=== PATIENT | female | born 1950 | race Caucasian/White ===

== ENCOUNTER 2024-04-14 16:28 | Emergency (ER) | payer MEDICARE, OTHER, SELFPAY ==
[2024-04-14 16:29] VITALS: BP 125/71; PULSE 66; RESP 14; TEMP 36.8; O2SAT 98
--- NOTE | 2024-04-14 16:32 | RAD_ITS ---
INDICATION: FALL EXAMINATION/TECHNIQUE: X-RAY - RIGHT XR Shoulder Min 2 Views 2 VIEWS COMPARISON: FINDINGS: SOFT TISSUES: No soft tissue swelling or gas. No radiopaque foreign body. BONES/JOINTS: Anterior dislocation of the right shoulder.. No sclerotic or destructive changes observed. RAD/Shoulder min 2 Views IMPRESSION: Anterior right shoulder dislocation. Electronically Signed: Andres Barr DO at 17:40 EDT ,
--- NOTE | 2024-04-14 16:33 | RAD_ITS ---
INDICATION: FALL EXAMINATION/TECHNIQUE: X-RAY - RIGHT XR Wrist Min 3 Views 3 VIEWS COMPARISON: FINDINGS: SOFT TISSUES: No soft tissue swelling or gas. No radiopaque foreign body. BONES/JOINTS: No acute fracture or subluxation.. Degenerative changes at the first carpal metacarpal articulation.. No sclerotic or destructive changes observed. RAD/Wrist min 3 Views IMPRESSION: No acute bony injury. Electronically Signed: Andres Barr DO at 17:15 EDT ,
--- NOTE | 2024-04-14 16:36 | ED.RN ---
PT DEMANDING TO BE SEEN IMMEDIATELY. PT NOT WANTING TO WAIT FOR A ROOM. PT WANTS TO GO BACK BEFORE OTHERS REGARDLESS OF WHY THEY ARE HERE.
--- NOTE | 2024-04-14 16:45 | RAD_ITS ---
INDICATION: FALL EXAMINATION/TECHNIQUE: X-RAY - RIGHT XR Elbow 2 Views COMPARISON: FINDINGS: SOFT TISSUES: No soft tissue swelling or gas. No radiopaque foreign body. BONES/JOINTS: There is no displacement of the anterior or posterior fat pads. No acute fracture or subluxation. Normal alignment. Preservation of the joint space. No sclerotic or destructive changes observed. RAD/Elbow 2 Views IMPRESSION: Negative. Electronically Signed: Andres Barr DO at 17:41 EDT ,
--- NOTE | 2024-04-14 17:06 | EDS_ITS ---
HPI History of Present Illness Chief Complaint: Upper Extremity Injury Detail of Chief Complaint: Patient fell and probably has pain in the shoulder but also complains palin Informant: patient Occured/Mechanism Mechanism/Context: Yes same level fall Onset/Context/Timing Onset: Today Context: Sudden Onset Timing: Continuous Quality of Pain: Dull and Aching Location: Right shoulder, elbow wrist. Current Severity: Severe (Shoulder) Maximum Severity: Severe Worsened by: Movement of the right upper extremity Relieved by: Nothing Associated Symptoms Associated Symptoms: Positive for Loss of Funtion Narrative Narrative: Patient states she was thinking of something. She thought she was sitting on a chair and landed on her right side. She injured her right shoulder, elbow and wrist. The most severe pain is the shoulder. Per nurse protocol x-ray of the shoulder wrist and elbow were obtained. Patient denies head trauma. Patient not on anticoagulant. Patient denies any problems with anesthesia. Patient denies allergy to egg products or soy products. Patient denies chest pain. Patient denies shortness of breath. Patient denies abdominal pain, nausea or vomiting. Prior similar symptoms: No Recent Illness/Hospitalization: No PFSH PFSH Home Medications ?Medication ?Instructions ?Recorded ?Last Taken ?Type azithromycin 250 mg tablet See Rx Instructions PO .COMPLEX #6 04/11/23 Unknown Rx (Zithromax Z-Steve) tabs hydrocodone-acetaminophen 5-325mg 1 tab PO Q6H PRN PRN Pain 3 days 04/14/24 Unknown Rx 5mg-325mg #10 TABLETS Allergy/AdvReac Type Severity Reaction Status Date / Time No Known Allergies Allergy Verified 04/14/24 16:29 Social History (Updated 04/14/24 @ 17:[address] Jose Rosas MD) household members: spouse Smoking Status: Never smoker ROS ROS ED Constitutional Constitutional ED: Denies chills, fever(s), subjective or sweats Eyes Eyes: Denies blurry vision or change in vision Cardiovascular Cardiovascular: Denies chest pain Respiratory/Chest Respiratory/Chest: Denies dyspnea Gastrointestinal Gastrointestinal: Denies abdominal pain, nausea or vomiting Musculoskeletal Musculoskeletal: Denies back pain or neck pain Neurologic Neurologic: Denies headache(s) or paresthesias Hematologic/Lymphatic Hematologic/Lymphatic: Denies easy bleeding or easy bruising EXAM Physical Exam Const Vital Signs: 04/14/24 16:29 Temperature 98.2 F Temperature Source Temporal Pulse Rate 66 Respiratory Rate 14 Blood Pressure 125/71 H Blood Pressure Mean 89 Pulse Ox 98 Oxygen Delivery Method Room Air Positive well nourished and well developed Constitutional Narrative: BMI is greater than 30 General Appearance ED: well developed; Negative for cyanotic, diaphoretic or NAD HEENT Reports moist mucous membranes normocephalic and atraumatic Eyes PERRL and EOMs intact bilaterally Eyes Narrative: There is no subconjunctival hemorrhage. Neck full ROM and supple Resp normal respiratory effort and clear to auscultation bilaterally Cardio regular rate, regular rhythm, S1 normal heart sound, S2 normal heart sound and no murmurs GI non-tender, non-distended and no masses Auscultation: normoactive bowel sounds Palpation: soft Extremity Negative for normal to inspection Extremity Narrative: The glenoid fossa is empty on the right. There is tenderness over the proximal humerus. There is no pain ovation of the clavicle or AC joint. There is minimal discomfort over the medial lateral epicondyle. There is no pain ovation over the olecranon process or radial head. There is minimal discomfort over the forearm. There is no pain over the carpal bones, metacarpal bones or phalanges. Axillary, median, radial and ulnar functions intact. Radial pulses palpable 2+. Neuro oriented x3, CN's II-XII intact bilaterally and moves all extremities Sensorium / Orientation: alert Psych mental status grossly normal Skin General Skin Exam: Negative for petechiae Lesions: no lesions Rashes: no rashes MDM MDM MDM Narrative Medical decision making narrative: X-ray per nurse protocol. Clinically suspect patient has a dislocation. Patient was consented for procedural sedation with propofol to reduce her ant erior subcoracoid right shoulder dislocation. History & Record Review Discussion w/independent historian: Patient and Significant other Radiography Chest X-Ray - ED: Read by ED Physician (Three-view x-ray of the wrist was obtained, 2 view x-ray of the shoulder and elbow were obtained. The x-ray of the wrist and shoulder were both negative for fracture, subluxation dislocation. The shoulder x-ray reveals an anterior subcoracoid dislocation.) and - (2 view x-ray of the shoulder was obtained. Reduction was successful. There is no Hill-Sachs deformity. Plan is discharge with orthopedic follow-up as an outpatient.) Treatment and Re-Evaluation Narrative: Since there is no one on-call for orthopedics she was referred to Dr. Justen Lewis. Procedures Procedural Sedation 1 (Initial Baseline): Consent Signed: Yes Any Problems With Anesthesia: No You/Your family experience fever (hyperthermia) w/anesthesia: No Sedation medication: Propofol Dose: 60 (Milligrams) Route: IV Total Moderate Sedation Units: 2 (Minutes) Maliampati Score: Class I ASA Classification: I Comment:: Timeout was called. Patient was sedated using propofol. Using traction countertraction technique shoulder was easily reduced. Minimal amount of force and time needed. Discharge Plan Triage Chief Complaint: Upper Extremity Injury ED Provider: Jose Rosas Dx/Rx/DC Orders Clinical Impression: Anterior dislocation of right shoulder, Contusion of elbow, Contusion of right wrist, initial encounter, Injury due to fall Instructions: ED Dislocation: Shoulder (Reduced) Prescriptions: New hydrocodone-acetaminophen 5-325 mg tablet 1 tab PO Q6H PRN PRN (Reason: Pain) 3 Days Qty: 10 0RF No Action azithromycin [Zithromax Z-Steve] 250 mg tablet See Rx Instructions PO .COMPLEX Qty: 6 0RF Rx Instructions: For 250 mg dose pack: take 500 mg today (day 1), then 250 mg for 4 days (days 2-5) PO Primary Care Provider: Care Physician,No Primary Referrals: Justen Lewis MD [Med Staff - Active Staff] - 5-7 Days Care Physician,No Primary [Primary Care Provider] - Print Language: Mongolian Disposition Disposition: Home, Self Care
[2024-04-14] MEDS: Morphine 2 MG/ML Syringe IV (17:16)
[2024-04-14] MEDS: Ondansetron 4 MG/2 ML Vial IV (17:16)
[2024-04-14 17:38] VITALS: BP 100/85; BP 147/80; PULSE 84; PULSE 89; RESP 18; RESP 19; TEMP 36.4; O2SAT 94; O2SAT 96
[2024-04-14] MEDS: Propofol 200 MG/20 ML Vial IV BOLUS (17:38)
[2024-04-14 17:47] VITALS: BP 128/73; O2SAT 97
--- NOTE | 2024-04-14 17:48 | RAD_ITS ---
INDICATION: Injury/Pain -- Postreduction anterior dislocation EXAMINATION/TECHNIQUE: X-RAY - RIGHT XR Shoulder Min 2 Views 2 VIEWS COMPARISON: April 14, 2024 at 16:58 hours FINDINGS: Status post reduction of shoulder dislocation. The visualized osseous structures are well aligned . RAD/Shoulder min 2 Views IMPRESSION: Status post reduction of shoulder dislocation. Electronically Signed: Andres Barr DO at 18:40 EDT ,
[2024-04-14 17:50] VITALS: BP 141/83; O2SAT 97
[2024-04-14 17:53] VITALS: BP 141/83; O2SAT 97
[2024-04-14 18:24] VITALS: BP 138/74; PULSE 87; RESP 18; TEMP 36.4; O2SAT 99
== END 2024-04-14 18:28 | disposition home or self-care (01) ==
PROVIDERS: Emergency Provider Emergency Medicine; Visit Provider Emergency Medicine
DX: S43.014A Anterior dislocation of right humerus, initial encounter (principal); S60.211A Contusion of right wrist, initial encounter; W18.30XA Fall on same level, unspecified, initial encounter; S50.01XA Contusion of right elbow, initial encounter
CPT/HCPCS: 23650; 73030; 73070; 73110; 96374; 96375; 99285; J7030; A4216; J2405

== ENCOUNTER 2024-04-23 13:01 | Emergency (ER) | payer MEDICARE, OTHER, SELFPAY ==
[2024-04-23] VITALS (7 sets, daily range): BP systolic 131–142; BP diastolic 64–115; PULSE 81–97; RESP 14–24; TEMP 35.8; O2SAT 93–100; BMI 37.8
--- NOTE | 2024-04-23 13:23 | RAD_ITS ---
EXAM: XR RIGHT SHOULDER COMPLETE, 2 OR MORE VIEWS CLINICAL INDICATION: injury, dislocation TECHNIQUE: Two or more views of the right shoulder. COMPARISON: 04.14.24 FINDINGS: BONES/JOINTS: Medial right shoulder dislocation. No visible fracture. No sclerotic or destructive changes observed. SOFT TISSUES: Unremarkable. No soft tissue swelling or gas. No radiopaque foreign body. RAD/Shoulder min 2 Views IMPRESSION: Medial right shoulder dislocation. No visible fracture. Electronically Signed: Stephen Zuniga MD at 14:09 EDT ,
--- NOTE | 2024-04-23 13:24 | EDS_ITS ---
HPI History of Present Illness Chief Complaint: Upper Extremity Injury Detail of Chief Complaint: Right shoulder injury Informant: patient Narrative Narrative: Patient presents to the emergency department with complaint of injury to the rig ht shoulder that occurred this morning. Patient states that she was try to get up off the toilet and reached up on the windowsill to help raise her self and feels like her shoulder popped out. Patient states that she was seen in the emergency department 8 days ago after a fall and a right shoulder dislocation. She has seen Dr. Lewis who is orthopedic surgery since her initial visit and was scheduled for physical therapy. Patient states that she had been doing well and was able to sleep on her shoulder last night. Patient is right-hand dominant. PFSH PFSH Home Medications ?Medication ?Instructions ?Recorded ?Last Taken ?Type acetaminophen 500 mg tablet 1,000 mg PO Q8H PRN PRN 04/20/24 Unknown History (Tylenol Extra Strength) ibuprofen 200 mg tablet 400 mg PO Q6H PRN 04/20/24 Unknown History Allergy/AdvReac Type Severity Reaction Status Date / Time No Known Allergies Allergy Verified 04/23/24 13:05 Family History (Updated 04/20/24 @ 14:26 by Ruth Hernandez) Other Adopted Surgical History History of section Social History (Updated 04/20/24 @ 14:28 by Ruth Hernandez) household members: spouse Smoking Status: Never smoker alcohol intake: current alcohol intake frequency: holidays/special occasions only Alcohol type: wine substance use type: does not use what type of physical activity do you participate in: walking and bicycling seatbelt use: always do you feel safe at home: Yes ROS ROS ED Review of Systems ROS Unobtainable: other Constitutional Constitutional ED: Reports lethargy; Denies chills, fever(s), sweats or weight loss Eyes Eyes: Denies blurry vision, change in vision or diplopia ENT ENT ED: Denies rhinorrhea or sore throat Cardiovascular Cardiovascular: Denies chest pain, orthopnea or racing heartbeat Respiratory/Chest Respiratory/Chest: Denies cough, dyspnea, dyspnea on exertion, orthopnea or sputum Gastrointestinal Gastrointestinal: Denies abdominal pain, diarrhea, nausea or vomiting Genitourinary Genitourinary ED: Denies dysuria, hematuria or urinary frequency Musculoskeletal Musculoskeletal: Reports other Details: Right shoulder pain/injury ; Denies arthralgias, back pain, myalgias or neck pain Integumentary Denies abscess, Abrasions or rash Neurologic Neurologic: Denies headache(s) or weakness Psychiatric Psychiatric: Denies anxiety, depression or suicidal thoughts Endocrine Endocrinology: Denies polydipsia, polyphagia or polyuria Hematologic/Lymphatic Hematologic/Lymphatic: Denies easy bleeding, easy bruising or lymphadenopathy Allergic/Immunologic Allergic/Immunologic ED: Denies mouth swelling, tongue swelling or urticaria EXAM Physical Exam Const Vital Signs: 04/23/24 13:02 Temperature 96.5 F L Temperature Source Temporal Pulse Rate 89 Respiratory Rate 14 Blood Pressure 137/76 H Blood Pressure Mean 96 Pulse Ox 93 Oxygen Delivery Method Room Air Positive well nourished and well developed General Appearance ED: well developed and NAD HEENT Reports TM's clear and moist mucous membranes normocephalic and atraumatic; Negative for trauma or tenderness Tympanic Membrane ED: Yes TM's clear Eyes PERRL and EOMs intact bilaterally General Eye ED: Negative for pale conjunctiva or scleral icterus Neck no lymphadenopathy, supple and no JVD General: Negative for tenderness Chest Wall inspection of chest normal and palpation of chest normal Chest: Negative for tenderness Resp normal respiratory effort and clear to auscultation bilaterally Effort and Inspection: Negative for respiratory distress or pain with movement Auscultation: Negative for rhonchi, wheezes or diminished lung sounds Cardio regular rate, regular rhythm, S1 normal heart sound, S2 normal heart sound and no murmurs Peripheral Pulses: pulses 2+ throughout GI normal to inspection, nondistended, normoactive bowel sounds, soft to palpation, non-tender, non-distended and no masses Back/Spine no CVA tenderness and no thoracic nor lumbar tenderness Extremity Extremity Narrative: Right shoulder-patient holds the arm abducted. I do not palpate a sulcus sign. She has pain with abducting the shoulder and describes the pain is in her armpit. She is neurovascular intact distally. There is no obvious deformity. General Extremety ED: Negative for edema General Extremity: Negative for edema Neuro oriented x3, CN's II-XII intact bilaterally, no sensory deficits noted and gait normal Sensorium / Orientation: awake, alert, oriented to person, oriented to place and oriented to time Motor Exam: strength 5/5 throughout and strength abnormal Psych mental status grossly normal Skin no rashes or lesions noted and no wounds MDM MDM MDM Narrative Medical decision making narrative: Patient presents with injury to the right shoulder. History of recent dislocation. She had an IV line established was given morphine for pain. X- rays of the right shoulder interpreted by myself as anterior-inferior dislocation of the glenohumeral joint. Patient was consented for procedural sedation. She was given propofol 100 mg IV. Good sedation. I was able to easily reduce her shoulder. Postreduction x-rays will be obtained. I discussed case with patient's orthopedic surgeon Dr. Lewis who recommended patient not go to her physical therapy that she was supposed to start in 3 days and give the shoulder more time to heal. Will place patient in the sling. She will use ice to the area and does not want any narcotic pain medicine for home. Radiography Diagnostic Testin view x-rays of the right shoulder obtained interpreted by myself as no evidence of fracture however there was an anterior inferior dislocation. Radiology in agreement. 2 view x-rays of shoulder obtained after reduction and showed good reduction on my interpretation without evidence of fracture. Procedures Procedural Sedation 1 (Initial Baseline): Consent Signed: Yes Any Problems With Anesthesia: No You/Your family experience fever (hyperthermia) w/anesthesia: Unknown Sedation medication: Propofol Dose: 100 Maliampati Score: Class I ASA Classification: I Discharge Plan Triage Chief Complaint: Upper Extremity Injury ED Provider: Carmen Avalos Dx/Rx/DC Orders Clinical Impression: Closed dislocation of right shoulder Instructions: ED Dislocation: Shoulder (Reduced) Prescriptions: No Action ibuprofen 200 mg tablet 400 mg PO Q6H PRN acetaminophen [Tylenol Extra Strength] 500 mg tablet 1,000 mg PO Q8H PRN PRN Primary Care Provider: Care Physician,No Primary Referrals: Justen Lewis MD [Med Staff - Active Staff] - 3-5 Days Care Physician,No Primary [Primary Care Provider] - Print Language: Urdu Disposition Disposition: Home, Self Care Discharge Date/Time: 04/23/24 14:55
[2024-04-23] MEDS: Morphine 4 MG/ML Syringe IV (13:31)
[2024-04-23] MEDS: Ondansetron 4 MG/2 ML Vial IV (13:31)
[2024-04-23] MEDS: Propofol 200 MG/20 ML Vial IV BOLUS (14:06)
--- NOTE | 2024-04-23 14:14 | RAD_ITS ---
STUDY: XR Shoulder Min 2 Views REASON FOR EXAM: Female, 74 years old. post reduction TECHNIQUE: XR Shoulder 2 Views RIGHT COMPARISON: Study done earlier today FINDINGS: Normal glenohumeral articulation. There is degenerative arthrosis of the acromioclavicular joint without inferior osseous spur formation. Normal acromion. Normal humeral head and visualized proximal humerus. The soft tissue structures are unremarkable. Normal visualized pulmonary apex. RAD/Shoulder min 2 Views IMPRESSION: There are no acute findings of the shoulder. Successful reduction Electronically Signed: Stephen Zuniga MD at 14:42 EDT ,
--- NOTE | 2024-04-23 14:33 | CON.PCM.OR_ITS ---
HPI Consult Data Date of Consult: 04/23/24 HPI Narrative HPI Narrative: SAMMI GIORDANO, is a 74 F who presents called by ED for repeat dislocation, and CR. PFSH Home Medications ?Medication ?Instructions ?Recorded ?Last Taken ?Type acetaminophen 500 mg tablet 1,000 mg PO Q8H PRN PRN 04/20/24 Unknown History (Tylenol Extra Strength) ibuprofen 200 mg tablet 400 mg PO Q6H PRN 04/20/24 Unknown History Allergy/AdvReac Type Severity Reaction Status Date / Time No Known Allergies Allergy Verified 04/23/24 13:05 Family History (Updated 04/20/24 @ 14:26 by Ruth Hernandez) Other Adopted Surgical History History of section Social History (Updated 04/20/24 @ 14:28 by Ruth Hernandez) household members: spouse Smoking Status: Never smoker alcohol intake: current alcohol intake frequency: holidays/special occasions only Alcohol type: wine substance use type: does not use what type of physical activity do you participate in: walking and bicycling seatbelt use: always do you feel safe at home: Yes Vital Signs Vital Signs Vital Signs: 04/23/24 13:02 04/23/24 14:07 04/23/24 14:09 Temperature 96.5 F L Temperature Source Temporal Pulse Rate 89 92 Pulse Rate [1 (Initial Baseline)] 97 Respiratory Rate 14 16 Respiratory Rate [1 (Initial Baseline)] 24 H Blood Pressure 137/76 H 137/115 H Blood Pressure [1 (Initial Baseline)] 135/69 H Blood Pressure Mean 96 Pulse Ox 93 99 Oxygen Delivery Method Room Air Nasal Cannula Oxygen Delivery Method [1 (Initial Baseline)] Nasal Cannula Oxygen Flow Rate (L/min) 3 Oxygen Flow Rate (L/min) [1 (Initial Baseline)] 2 04/23/24 14:13 04/23/24 14:18 04/23/24 14:23 Temperature Temperature Source Pulse Rate Pulse Rate [1 (Initial Baseline)] Respiratory Rate Respiratory Rate [1 (Initial Baseline)] Blood Pressure Blood Pressure [1 (Initial Baseline)] Blood Pressure Mean Pulse Ox Oxygen Delivery Method Room Air Nasal Cannula Room Air Oxygen Delivery Method [1 (Initial Baseline)] Oxygen Flow Rate (L/min) 2 2 Oxygen Flow Rate (L/min) [1 (Initial Baseline)] Weight Weight: 221 lb 12.56 oz Body Mass Index (BMI) 37.8 Imaging Radiology Impression Shoulder X-Ray 04/23/24 13:23 IMPRESSION: Medial right shoulder dislocation. No visible fracture. Electronically Signed: Stephen Zuniga MD at 14:09 EDT Reading Location ID and State: [facility] / [place] , Service support , Assessment & Plan Assessment/Plan (1) Anterior dislocation of right shoulder: PLAN: 74 yr F with repeat dislocation R shoulder dislocation. Apparently she was using the arm for pulling herself up. No concerns from ED physician who did closed reduction today. Would recommend to avoid positions of instability, increased time in the sling, and slowing down her rehab to avoid a repeat dislocation. There is a risk of repeat dislocation within the first 6 weeks which I let her know at last visit and had showed the patient things to avoid. Definitely no pushing pulling or other forceful activities with the shoulder. Asked to FU in clinic, and will most likely order outpatient MRI to rule out associated injuries given this has happened twice now.
== END 2024-04-23 14:55 | disposition home or self-care (01) ==
PROVIDERS: Emergency Provider Emergency Medicine; Visit Provider Emergency Medicine
DX: S43.004A Unspecified dislocation of right shoulder joint, initial encounter (principal); S43.036A Inferior dislocation of unspecified humerus, initial encounter; X58.XXXA Exposure to other specified factors, initial encounter
CPT/HCPCS: 73030; 96374; 96375; 96376; 99283; J7040; A4216; J2405

== ENCOUNTER → 2024-05-22 | Outpatient (CLI) | payer MEDICARE, OTHER, SELFPAY ==
--- NOTE | 2024-05-22 10:15 | MRI_ITS ---
STUDY: MRI RIGHT SHOULDER REASON FOR EXAM: Female, 74 years old. pain, DISLOCATION X 2 TECHNIQUE: Standardized fat and water weighted pulse sequences were obtained in all 3 orthogonal planes. COMPARISON: X-ray 04/23/2024 FINDINGS: Mild supraspinatus and infraspinatus tendinosis and peritendinitis as with a 2 x 2 cm full-thickness tear of the distal posterior supraspinatus tendon retracted to the mid humeral head. Normal subscapularis tendon. Normal teres minor tendon. There is mild muscular atrophy of the supraspinatus muscle. There is mild muscular atrophy of the infraspinatus muscle. Normal subscapularis muscle. Normal teres minor muscle. There is a moderate volume joint effusion of the glenohumeral joint. Normal humeral head and visualized proximal humerus. Normal biceps labral complex. Normal intracapsular long biceps tendon. Normal labrum. Normal capsulo- ligamentous complex. Normal rotator interval. There is moderate osteoarthritis of the acromioclavicular articulations. There is a Type II morphology (curved), with a neutral orientation. There is fluid distention of the subacromial-subdeltoid bursa, which communicates with the glenohumeral joint, through a rotator cuff tear. Normal visualized coracohumeral and coracoacromial ligaments. Normal quadrilateral space. Normal axillary space. Normal deltoid muscle. Normal trapezius muscle. MRI/Upper Ext Joint Only(Routine) IMPRESSION: 1. Mild supraspinatus and infraspinatus tendinosis and peritendinitis as with a 2 x 2 cm full-thickness tear of the posterior supraspinatus tendon retracted to the mid humeral head. Mild muscular atrophy. 2. Moderate joint effusion with fluid extending into the subacromial/subdeltoid bursa. 3. 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 Electronically Signed: Siddhartha Edgar MD at 12:45 EDT ,
== END | disposition home or self-care (01) ==
LOC: MRI 09:44
PROVIDERS: Referring Provider Orthopaedic Surgery Sports Medicine; Visit Provider Orthopaedic Surgery Sports Medicine
DX: M25.511 Pain in right shoulder (principal)
CPT/HCPCS: 73221

== ENCOUNTER 2024-08-14 13:30 | Outpatient (RCR) | payer MEDICARE, OTHER, SELFPAY ==
--- NOTE | 2024-05-17 17:18 | HP.PTEVAL_ITS ---
Patient's Visit Information Visit Information Visit Information: SAMMI GIORDANO is a 74 year old F referred to Physical Therapy by Dr. Justen Lewis MD with a diagnosis of R shoulder anterior dislocation/OA B knees. Date of Evaluation: 05/17/24 Physical Therapist: MARIA Meraz Visit Plan Frequency: 2x /Week Duration: 2 Months Plan: Give standing hip flexion and hip ext strength next visit. Start hip flexor stretches next visit 2X/ week for starting with R shoulder PROM per tolerance and progressing AROM as able (anterior dislocation), RC strengthening with elbow at side and below 90 degrees. Will work on B knee AROM, B hip, knee and core strength, gait training with HEP HEP: sit to stand, QS, seated knee flexion, bridges Subjective Subjective: She missed the chair and had no feeling from his hand to her shoulder and the worst pain April 14. Her son came over as an ENT and had his friend come over and lifted her to get to the hospital and found her R shoulder was dislocated and popped it back into place. She took IBPRof and Tylenol and tore her stomach up. The second time she dislocated (April 23) her R shoulder again when she pushed up off the chair and they had to put her shoulder back in place again. She has an MRI on Wednesday to see if there is a tear in there. She is R hand dominant. She is afraid to carry a laundry basket. They cancelled her vacation and her reunion because she realizes now how much she is using her arms for bathrooms etc. She has a lift seat right now. She now needs to get her legs built up so she can get out of the chair easier. She had a cortisone shot in her R knee and saw a slight improvement. B knees are bone on bone. She has not been able to go up and down the steps holding anything because she has to pull up the stairs. She recently has put on a lot of weight. She is not doing a lot of activity. She wants to go up and down the stairs carrying something. She wants to be able to walk again. She is not allowed to do anything reaching overhead. She is not driving because she can not shift with her R arm. She has trouble walking and chiro said her hips are out of place. Pain R shoulder pain: Pain Intensity (Out of 10): 0 Comment: with moving her arm or doing her hair R knee pain: Pain Intensity (Out of 10): 5 L knee pain: Pain Intensity (Out of 10): 7 Objective Objective: Gait: Walks with WBOS and no heel to toe gait pattern and very stiff legged and caught her R toe with gait. She almost walks with circumduction to clear the foot instead of hip flex/ knee flexion Sit to stand: Pt struggles to bend knees back far enough to get underneath her. She is able to sit to stand with knees apart and lean FW with rocking with no UE. LE MMT: R hip flex 12.7 and L 14.7 R knee ext 24 and L 23.8 R knee flex 10.1 and L 9.7 R knee abd 13.7 and L 12.8 Pt is able to SLR B Pt is able to do 1/2 normal ROM bridge Heel and toe raises: Pt struggles with toe raises but able to do heel raises R knee AROM: -19 knee ext and 83 knee flexion L knee AROM: -17 knee ext and 81 knee flexion R hand dominant UE AROM: R shoulder flexion 104 and L 150 R shoulder ABD 70 and L 160 R shoulder IR L1 and L T8 R shoulder ER 45 and L 60 R shoulder flex 3.2 and L 11.7 R shoulder ER 7.4 and L 10.7 R shoulder PROM flexion to approx 90 degrees and then she starts with some pain Balance/Special Test Scores Lower Extremity Functional Score: 22 Quick DASH Score: 45.4525 Goals Goal 1:: I HEP Goal Time Frame: 6-8 Weeks Goal 2:: Increase B knee AROM (at the time of the eval the R was -19 to 83 and L -17 to 81) Goal Time Frame: 6-8 Weeks Goal 3:: Be able to walk with less WBOS and more heel to toe gait pattern instead of circumduction Goal Time Frame: 6-8 Weeks Goal 4:: Increase R shoulder AROM to 120 degrees pain free elevation by disch arge Goal Time Frame: 6-8 Weeks Goal 5:: Be able to use her R arm without having pain Goal Time Frame: 6-8 Weeks Rehabilitation Potential Rehabilitation Potential: Good Anticipated Interventions Patient/Client Instruction: Educate patient on: Condition and Plan of Care For the Purpose of:: To decrease pain, To increase ROM, To improve nutrient delivery to tissue, To improve muscle performance and motor function, To improve ability to perform ADL's, To increase tolerance to activity/condition/position, To improve performance and independence with ADL's, To decrease level of supervision to perform tasks, To improve ability of physical actions for home/community/work/leisure, To improve gait and locomotor functions, To improve health of tissue, To decrease soft tissue restriction and To increase f lexibility/ROM Therapeutic Exercise to Include: Strength training, Agility training, Postural training, Flexibilty training, Gait and locomotor training, Neuromotor development, Passive ROM, Active ROM and Dynamic Lumbar Stabilization For the Purpose of:: To decrease pain, To decrease swelling/inflammation, To increase ROM, To improve nutrient delivery to tissue, To improve muscle performance and motor function, To improve ability to perform ADL's, To increase tolerance to activity/condition/position, To improve performance and independence with ADL's, To decrease level of supervision to perform tasks, To improve ability of physical actions for home/community/work/leisure, To improve gait and locomotor functions, To improve health of tissue, To decrease soft tissue restriction and To increase flexibility/ROM Functional Training to Include: Gait training For the Purpose of:: To improve gait and locomotor functions and To improve safety with gait Manual Therapy Techniques to Include: Passive ROM For the Purpose of:: To decrease pain, To increase ROM, To improve nutrient delivery to tissue, To improve muscle performance and motor function, To improve ability to perform ADL's, To increase tolerance to activity/condition/position, To improve performance and independence with ADL's, To decrease level of supervision to perform tasks, To improve ability of physical actions for home/community/work/leisure, To improve gait and locomotor functions, To improve health of tissue, To decrease soft tissue restriction and To increase flexibility/ROM Text: Thank you for the opportunity to evaluate your patient. For Medicare and Medicare HMO plans, please review the plan of care and approve it. It will need to be FAXED BACK to us at [phone] for Medicare purposes. For Medicare only, by signing this I certify the plan of care. Please let me know if there are questions or concerns regarding this plan of care. Physician Signature: Date:
--- NOTE | 2024-06-14 14:15 | HP.PTREVAL ---
Re-Evaluation Intro: Dr. Justen Lewis MD, It has been my pleasure to treat SAMMI GIORDANO over the last 9 visits for R shoulder anterior dislocation/OA B knees. Please see the progress note below for an update on the physical therapy plan of care! Subjective Subjective: Pt reports her pain is worst at night but does notice some small improvements overall. Objective Objective/Function: Educated pt on diagnosis and when surgery is necessary for RTC tear. Educated pt on recovery process for partial tears without the use of surgery. Pt tolerates small progression of load and intensity well today with pain or c/o discomfort t/o. Plan Plan Plan: 2X/ week for starting with R shoulder PROM per tolerance and progressing AROM as able (anterior dislocation), RC strengthening with elbow at side and below 90 degrees. Will work on B knee AROM, B hip, knee and core strength, gait training with HEP HEP: sit to stand, QS, seated knee flexion, bridges Balance/Gait/Functional tests Balance/Special Test Scores Lower Extremity Functional Score: 31 Quick DASH Score: 40.9075 Goals Goals Goal 1:: I HEP Goal Time Frame: 6-8 Weeks Goal 2:: Increase B knee AROM (at the time of the eval the R was -19 to 83 and L -17 to 81) Goal Time Frame: 6-8 Weeks Goal Progress: Progressing Goal 3:: Be able to walk with less WBOS and more heel to toe gait pattern instead of circumduction Goal Time Frame: 6-8 Weeks Goal Progress: Progressing Goal 4:: Increase R shoulder AROM to 120 degrees pain free elevation by discharge Goal Time Frame: 6-8 Weeks Goal Progress: Progressing Goal 5:: Be able to use her R arm without having pain Goal Time Frame: 6-8 Weeks Anticipated Interventions Anticipated Interventions Patient/Client Instruction: Educate patient on: Condition and Plan of Care For the Purpose of:: To decrease pain, To increase ROM, To improve nutrient delivery to tissue, To improve muscle performance and motor function, To improve ability to perform ADL's, To increase tolerance to activity/condition/position, To improve performance and independence with ADL's, To decrease level of supervision to perform tasks, To improve ability of physical actions for home/community/work/leisure, To improve gait and locomotor functions, To improve health of tissue, To decrease soft tissue restriction and To increase flexibility/ROM Therapeutic Exercise to Include: Strength training, Agility training, Postural training, Flexibilty training, Gait and locomotor training, Neuromotor development, Passive ROM, Active ROM and Dynamic Lumbar Stabilization For the Purpose of:: To decrease pain, To decrease swelling/inflammation, To increase ROM, To improve nutrient delivery to tissue, To improve muscle performance and motor function, To improve ability to perform ADL's, To increase tolerance to activity/condition/position, To improve performance and independence with ADL's, To decrease level of supervision to perform tasks, To improve ability of physical actions for home/community/work/leisure, To improve gait and locomotor functions, To improve health of tissue, To decrease soft tissue restriction and To increase flexibility/ROM Functional Training to Include: Gait training For the Purpose of:: To improve gait and locomotor functions and To improve safety with gait Manual Therapy Techniques to Include: Passive ROM For the Purpose of:: To decrease pain, To increase ROM, To improve nutrient delivery to tissue, To improve muscle performance and motor function, To improve ability to perform ADL's, To increase tolerance to activity/condition/position, To improve performance and independence with ADL's, To decrease level of supervision to perform tasks, To improve ability of physical actions for home/community/work/leisure, To improve gait and locomotor functions, To improve health of tissue, To decrease soft tissue restriction and To increase flexibility/ROM Re-Evaluation Ending Re-evaluation ending: Please do not hesitate to contact me at [phone] by phone or if you have questions or concerns regarding this new plan of care! Sincerely, MARIA Meraz
--- NOTE | 2024-07-05 15:43 | HP.PTREVAL ---
Re-Evaluation Intro: Dr. Justen Lewis MD, It has been my pleasure to treat SAMMI GIORDANO over the last 15 visits for R shoulder anterior dislocation/OA B knees. Please see the progress note below for an update on the physical therapy plan of care! Subjective Subjective: Pt reports that behind her back hurts some now when she does that motion Objective Objective/Function: Pt had a lot of questions today about exercise progression and how she is doing. Attempted to answer all questions Increase B knee AROM (at the time of the eval the R was -17 to 85 and L -14 to 84) Increase R shoulder AROM to 120 degrees pain free elevation by discharge Gait: Be able to walk with less WBOS and more heel to toe gait pattern instead of circumduction Plan Plan Plan: 2X/ week for starting with R shoulder PROM per tolerance and progressing AROM as able (anterior dislocation), RC strengthening with elbow at side and below 90 degrees. Will work on B knee AROM, B hip, knee and core strength, gait training with HEP HEP: sit to stand, QS, seated knee flexion, bridgesa Balance/Gait/Functional tests Balance/Special Test Scores Lower Extremity Functional Score: 30 Quick DASH Score: 31.8175 Goals Goals Goal 1:: I HEP Goal Time Frame: 6-8 Weeks Goal 2:: Increase B knee AROM (at the time of the eval the R was -19 to 83 and L -17 to 81) Goal Time Frame: 6-8 Weeks Goal Progress: Progressing Goal 3:: Be able to walk with less WBOS and more heel to toe gait pattern instead of circumduction Goal Time Frame: 6-8 Weeks Goal Progress: Progressing Goal 4:: Increase R shoulder AROM to 120 degrees pain free elevation by discharge Goal Time Frame: 6-8 Weeks Goal Progress: Progressing Goal 5:: Be able to use her R arm without having pain Goal Time Frame: 6-8 Weeks Anticipated Interventions Anticipated Interventions Patient/Client Instruction: Educate patient on: Condition and Plan of Care For the Purpose of:: To decrease pain, To increase ROM, To improve nutrient delivery to tissue, To improve muscle performance and motor function, To improve ability to perform ADL's, To increase tolerance to activity/condition/position, To improve performance and independence with ADL's, To decrease level of supervision to perform tasks, To improve ability of physical actions for home/community/work/leisure, To improve gait and locomotor functions, To improve health of tissue, To decrease soft tissue restriction and To increase flexibility/ROM Therapeutic Exercise to Include: Strength training, Agility training, Postural training, Flexibilty training, Gait and locomotor training, Neuromotor development, Passive ROM, Active ROM and Dynamic Lumbar Stabilization For the Purpose of:: To decrease pain, To decrease swelling/inflammation, To increase ROM, To improve nutrient delivery to tissue, To improve muscle performance and motor function, To improve ability to perform ADL's, To increase tolerance to activity/condition/position, To improve performance and independence with ADL's, To decrease level of supervision to perform tasks, To improve ability of physical actions for home/community/work/leisure, To improve gait and locomotor functions, To improve health of tissue, To decrease soft tissue restriction and To increase flexibility/ROM Functional Training to Include: Gait training For the Purpose of:: To improve gait and locomotor functions and To improve safety with gait Manual Therapy Techniques to Include: Passive ROM For the Purpose of:: To decrease pain, To increase ROM, To improve nutrient delivery to tissue, To improve muscle performance and motor function, To improve ability to perform ADL's, To increase tolerance to activity/condition/position, To improve performance and independence with ADL's, To decrease level of supervision to perform tasks, To improve ability of physical actions for home/community/work/leisure, To improve gait and locomotor functions, To improve health of tissue, To decrease soft tissue restriction and To increase flexibility/ROM Re-Evaluation Ending Re-evaluation ending: Please do not hesitate to contact me at [phone] by phone or if you have questions or concerns regarding this new plan of care! Sincerely, Francesca Vaughn, MPT
--- NOTE | 2024-08-14 15:00 | HP.PTDCSUM ---
Discharge Summary D/C summary: It has been my pleasure to treat SAMMI GIORDANO referred by Dr. Justen Lewis MD, with the diagnosis of R shoulder anterior dislocation/OA B knees for a total of 23 visit(s). Discharge Date: 08/14/24 Please see the following information for a summary of their discharge status. Subjective Subjective: Pt was on vacation. She feels that she has improved in her strength and use of her shoulder and arm. She always has pain and with exercises she feels better. She feels that she has use of her arm and less fear to use it. She did 40 laps on vacation. She still can not walk long distances. Pain R shoulder pain: Pain Intensity (Out of 10): 0 R knee pain: Pain Intensity (Out of 10): 3 L knee pain: Pain Intensity (Out of 10): 3 Overall Improvement % Improvement: 75 Objective Objective/Function: R shoulder flexion 127 Increase B knee AROM: R -15 to 87 and L -15 to 84 Gait: still walks with wider VIVIAN and decrease knee flexion Pt has gym routine worksheet and is able to set up on her own. Goals Goal 1:: I HEP Goal Progress: Goal Met Goal 2:: Increase B knee AROM (at the time of the eval the R was -19 to 83 and L -17 to 81) Goal Progress: Progressing Goal 3:: Be able to walk with less WBOS and more heel to toe gait pattern instead of circumduction Goal Progress: Progressing Goal 4:: Increase R shoulder AROM to 120 degrees pain free elevation by discharge Goal Progress: Goal Met Goal 5:: Be able to use her R arm without having pain Goal Progress: Goal Met Plan Plan: DC PT to [facility] D/C Information Discharge Comments: DC PT to [facility]P d/c sentence: If there are questions or concerns regarding this patient's physical therapy, please feel free to call me at [phone]. Thank you for the referral of this patient. Sincerely, Francesca Vaughn, MPT Balance/Gait/Functional tests Balance/Special Test Scores Lower Extremity Functional Score: 34 Quick DASH Score: 31.8175 Improvement % Improvement: 75
== END 2024-08-14 19:00 | disposition home or self-care (01) ==
LOC: PT 13:30
PROVIDERS: Referring Provider Orthopaedic Surgery Sports Medicine; Visit Provider Orthopaedic Surgery Sports Medicine
DX: S43.014D Anterior dislocation of right humerus, subsequent encounter (principal); M17.12 Unilateral primary osteoarthritis, left knee; D16.9 Benign neoplasm of bone and articular cartilage, unspecified
CPT/HCPCS: 97110; 97162; 97530